=== PATIENT | female | born 1970 | race Caucasian/White ===

== ENCOUNTER 2018-10-20 10:06 | Outpatient (REF) | payer OTHER, SELFPAY | END 2018-10-20 10:26 | LOC: LBN 10:06 | PROVIDERS: PCP Physician Assistant Medical; Visit Provider Nurse Practitioner Women's Health | DX: R21 Rash and other nonspecific skin eruption (principal) | CPT/HCPCS: 87077; 87070; 87186 ==

== ENCOUNTER 2019-09-25 11:03 | Outpatient (REF) | payer MEDICAID, SELFPAY ==
[2019-09-26 14:02] LABS: Chlamydia Result Negative (Negative); GC Result Negative (Negative)
== END 2019-09-25 11:23 ==
LOC: LBN 11:03
PROVIDERS: PCP Physician Assistant Medical; Visit Provider Nurse Practitioner Women's Health
DX: Z11.3 Encounter for screening for infections with a predominantly sexual mode of transmission (principal)
CPT/HCPCS: 87491; 87591

== ENCOUNTER 2020-02-19 19:44 | Outpatient (REF) | payer MEDICAID, SELFPAY ==
[2020-02-21 14:30] LABS: Chlamydia Result Negative (Negative); GC Result Negative (Negative)
== END 2020-02-19 20:04 ==
LOC: LBN 19:44
PROVIDERS: PCP Physician Assistant Medical; Visit Provider Nurse Practitioner Family
DX: R30.0 Dysuria (principal); Z11.3 Encounter for screening for infections with a predominantly sexual mode of transmission
CPT/HCPCS: 87491; 87591; 87086

== ENCOUNTER 2020-09-12 14:55 | Outpatient (REF) | payer MEDICAID, SELFPAY ==
--- NOTE | 2020-09-12 14:00 | PAPFT_PTH ---
PATIENT: Odalis Gallo LOC: [facility] U#:[id number] AGE/SX: 49/F ROOM: RE09/12/[address]: BHARATI Salazar : 1970 BED: DIS: 09/12/2020 SPEC #: [id number] RECD: 09/12/20 17:39 STATUS: [place] REQ #: [id number] DURGA: 09/12/20 14:[address]: Ludy Herrera DEPT: [facility] Cytology RECD BY: Janey Jacobson ENTERED: 09/12/20 17:39 SP TYPE: PAPFT OTHR DR: Ludy Will Tissues: 1 - CX/ENDOCX FOR PAP SMEARS Procedures: PAP THIN PREP/[facility] Screening HPV DNA PROBE Comments: [id number]
[2020-09-13 15:05] LABS: Chlamydia Result Negative (Negative); GC Result Negative (Negative)
== END 2020-09-12 14:56 | disposition home or self-care (01) ==
LOC: LBN 14:55
PROVIDERS: PCP Physician Assistant Medical; Visit Provider Nurse Practitioner Family
DX: Z12.4 Encounter for screening for malignant neoplasm of cervix (principal); Z11.3 Encounter for screening for infections with a predominantly sexual mode of transmission; Z85.41 Personal history of malignant neoplasm of cervix uteri; Z11.51 Encounter for screening for human papillomavirus (HPV); Z90.710 Acquired absence of both cervix and uterus
CPT/HCPCS: 87491; 87591; 88142; 87086; 87624

== ENCOUNTER 2022-08-06 15:27 | Outpatient (REF) | payer MEDICAID, SELFPAY | END 2022-08-06 15:28 | disposition home or self-care (01) | LOC: LBN 15:27 | PROVIDERS: PCP Physician Assistant Medical; Visit Provider Obstetrics & Gynecology | DX: N89.8 Other specified noninflammatory disorders of vagina (principal) | CPT/HCPCS: 87480; 87510; 87660 ==